=== PATIENT | female | born 1960 | race Caucasian/White ===

== ENCOUNTER → 2016-07-18 | Outpatient (CLI) | payer MEDICAID ==
[2016-07-18 17:06] LABS: BASO # 0.1 x10^3/uL (0.0-0.2); BASO % 1 % (0-3); EOS % 3 % (0-3); HEMATOCRIT 45.9 % (36.0-47.0); HEMOGLOBIN 15.6 g/dL (12.0-15.5); LYMPH # 2.4 x10^3/uL (1.0-4.8); LYMPH % 33 % (24-48); MEAN CORPUSCULAR HEMOGLOBIN 33 pg (25-35); MEAN CORPUSCULAR HGB CONC 34 g/dL (31-37); MEAN CORPUSCULAR VOLUME 99 fL (79-100); MONO % 13 % (0-9); NEUT % 50 % (31-73); PLATELET COUNT 100 x10^3/uL (140-400); RED BLOOD COUNT 4.66 x10^6/uL (3.50-5.40); RED CELL DISTRIBUTION WIDTH 14.3 % (11.5-14.5); WHITE BLOOD COUNT 7.5 x10^3/uL (4.0-11.0)
[2016-07-18 17:16] LABS: INR 1.2 (0.8-1.1); PROTHROMBIN TIME PATIENT 14.4 SEC (11.7-14.0)
[2016-07-18 17:38] LABS: ALBUMIN 3.1 g/dL (3.4-5.0); ALBUMIN/GLOBULIN RATIO 0.7 (1.0-1.7); CREATININE 0.7 mg/dL (0.6-1.0); GFR 86.2; POTASSIUM 4.1 mmol/L (3.5-5.1); TOTAL BILIRUBIN 0.6 mg/dL (0.2-1.0); TOTAL PROTEIN 7.7 g/dL (6.4-8.2)
[2016-07-20 11:13] LABS: HCV ULTRA QUANT PCR HCV Not Detected IU/mL (.)
== END | disposition home or self-care (01) ==
LOC: LAB 16:36
PROVIDERS: ATTEND Internal Medicine
DX: B18.2 Chronic viral hepatitis C (principal); K72.90 Hepatic failure, unspecified without coma
CPT/HCPCS: 36415; 80053; 85027; 85610; 87521

== ENCOUNTER 2017-06-15 18:31 | Emergency (ER) | payer OTHER, MEDICAID ==
[2017-06-15] MEDS: ORPHENADRINE CITRATE 60 MG/2 ML VIAL. IM (19:15)
[2017-06-15] MEDS: KETOROLAC 60 MG/2 ML INJ. IM (19:15)
[2017-06-15] MEDS ORDERED: ORPHENADRINE CITRATE 60 MG/2 ML VIAL. (19:16)
== END 2017-06-15 19:49 | disposition home or self-care (01) ==
LOC: ER 18:31
DX: M54.5 Low back pain (principal); G89.29 Other chronic pain; I10 Essential (primary) hypertension; F17.200 Nicotine dependence, unspecified, uncomplicated; Z88.8 Allergy status to other drugs, medicaments and biological substances; W18.39XA Other fall on same level, initial encounter; Y93.89 Activity, other specified; Y99.8 Other external cause status; Y92.89 Other specified places as the place of occurrence of the external cause
CPT/HCPCS: 72170; 96372; 99284-25; J1885; J2360

== ENCOUNTER 2020-01-24 08:50 | Emergency (ER) | payer OTHER ==
[2017-06-15 18:39] VITALS: BP 160/78
[~2020-01-24 08:50] MED LIST: IBUP-1060 PO; ORPH100T PO
== END 2020-01-24 10:31 | disposition left against medical advice (07) ==
LOC: ER 08:50
DX: S61.459A Open bite of unspecified hand, initial encounter (principal); W54.0XXA Bitten by dog, initial encounter; Z53.21 Procedure and treatment not carried out due to patient leaving prior to being seen by health care provider; Y93.89 Activity, other specified; Y92.89 Other specified places as the place of occurrence of the external cause; Y99.8 Other external cause status

== ENCOUNTER 2021-05-11 12:35 | Emergency (ER) | payer OTHER ==
[~2021-05-11] VITALS: Ht 149.9 cm; Wt 80.9 kg
--- NOTE | 2021-05-11 13:57 | RAD ---
EXAM: Right hand, 3 views; right forearm, 2 views; right humerus, 2 views. HISTORY: Falls. Pain. COMPARISON: None. FINDINGS: Right hand and forearm: There is no acute fracture, dislocation or subluxation. There is suspected de generative subchondral cyst formation involving the ulnar aspect of the lunate. There is no convincin g osteonecrosis. There is no radiodense foreign body. There is no elbow effusion. Right humerus: 2 views the right humerus are obtained. There is no fracture, dislocation or subluxati on. There is minimal degenerative change involving the acromioclavicular joint. IMPRESSION: No acute osseous finding. Electronically signed by: Elvira Padilla MD (05/11/2021 1:55 PM) [id number]
--- NOTE | 2021-05-11 14:20 | PHYS DOC ---
Past Medical History Past Medical History: Hypertension, Stroke Additional Past Medical Histor: cirrhosis of the liver, osteoporesis Past Surgical History: , Other Additional Past Surgical Histo: Facial reconstruction, arm and wrist surgery Smoking Status: Never Smoker Alcohol Use: None Drug Use: None General Adult EDM: Chief Complaint: UPPER EXTREMITY INJURY HPI: HPI: Patient is a 61 year old female who presents with right upper extremity pain. Patient states she has residual deficits from a prior stroke, and as a result falls frequently. Patient states she was flipping her mattress with her granddaughter on Friday. She was standing inside of the bed frame, but when she went to step out, she did not clear the bed frame with her foot and fell onto her right side. She is unsure if she fell onto her outstretched hand or directly onto her upper arm. Patient reports that her hand is now swollen and that she has bruising in the axilla. She reports she has fallen 34 times in the past month onto her right side. Patient reports pain with lifting her right arm. She denies paresthesias, skin color changes, head trauma, loss of consci ousness and any other injuries. Review of Systems: Review of Systems: Constitutional: Denies fever, chills or generalized weakness Eyes: Denies change in visual acuity, visual field deficits or discharge HENT: Denies ear pain, nasal congestion or sore throat Respiratory: Denies cough or shortness of breath Cardiovascular: Denies chest pain, palpitations or edema GI: Denies abdominal pain, nausea, vomiting, bloody stools or diarrhea : Denies dysuria or hematuria Musculoskeletal: See HPI Integument: Denies rash or other skin lesion Neurologic: Denies headache, focal weakness or sensory changes Heart Score: C/O Chest Pain: No Allergies: Allergies: Allergies Coded Allergies Type Severity Reaction Last Updated Verified nitroglycerin Allergy Unknown 05/11/21 Yes Physical Exam: PE: Constitutional: Obese, no acute distress, non-toxic appearance. HENT: Normocephalic, atraumatic, bilateral external ears normal, nose normal. Eyes: EOMI, conjunctiva normal, no discharge. Neck: Normal range of motion, no stridor. Skin: Warm, dry, no erythema, no rash. Ecchymosis noted in R axilla. Back: No stepoff, no tenderness. Extremities: RUE diffusely tender to palpation, passive ROM intact, active R arm abduction limited secondary to pain, edema of right hand noted consistent with dependent edema. Extremities otherwise no tenderness, no cyanosis, no clubbing, ROM intact, no edema, distal pulses symmetric. Neurologic: Alert and oriented x4, no focal deficits noted. Current Patient Data: Vital Signs: Vital Signs Date Time Temp Pulse Resp B/P (MAP) Pulse Ox O2 Delivery O2 Flow Rate FiO2 05/11/21 12:37 97.7 78 20 186/81 (116) 96 Room Air 97.7 Radiology/Procedures: Radiology/Procedures: PROCEDURE: HUMERUS RIGHT EXAM: Right hand, 3 views; right forearm, 2 views; right humerus, 2 views. HISTORY: Falls. Pain. COMPARISON: None. FINDINGS: Right hand and forearm: There is no acute fracture, dislocation or subluxation. There is suspected degenerative subchondral cyst formation involving the ulnar aspect of the lunate. There is no convincing osteonecrosis. There is no radiodense foreign body. There is no elbow effusion. Right humerus: 2 views the right humerus are obtained. There is no fracture, dislocation or subluxation. There is minimal degenerative change involving the acromioclavicular joint. IMPRESSION: No acute osseous finding. Electronically signed by: Elvira Padilla MD (05/11/2021 1:55 PM) [id number] Course & Med Decision Making: Course & Med Decision Making Pertinent Labs and Imaging studies reviewed. (See chart for details) Plain films do not show any acute abnormalities. Patient was provided contact information for receiving specialist for follow-up evaluation and management. Her questions were answered. Patient understands and is agreeable to discharge at this time. Dragon Disclaimer: Dragon Disclaimer: This electronic medical record was generated, in whole or in part, using a voice recognition dictation system. Departure Departure Impression: Primary Impression: Contusion of multiple sites of right arm Qualified Codes: S40.021A - Contusion of right upper arm, initial encounter Additional Impression: Subchondral bone cyst Disposition: HOME / SELF CARE / HOMELESS Condition: STABLE Referrals: ROSELIA BARRIOS MD (PCP) CHANDAN HUFFMAN Jr. DO Patient Instructions: Arthritis, Nonspecific, [id number], Contusion, [id number] Additional Instructions: EMERGENCY DEPARTMENT GENERAL DISCHARGE INSTRUCTIONS Thank you for coming to [facility] Emergency Department (ED) toda y and trusting us with you care. We trust that you had a positive experience in our Emergency Department. If you wish to speak to the department management, you may call the director at . YOUR FOLLOW UP INSTRUCTIONS ARE FOLLOWS: 1. Follow up with your primary care doctor. If you do not have a primary doctor, please ask for a resource list of physicians or clinics that may be able to assist you with follow up care. 2. The emergency provider has interpreted your imaging studies, if any were ordered. The radiology injection specialist also reviewed them. If there is a change in the findings, you will be notified in 48 hours when at all possible. 3. If a lab test or culture has been done, your results will be reviewed and you will be notified if you need a change in treatment. 4. Follow instructions verbalized to you and refer to the printouts if needed. ADDITIONAL INSTRUCTIONS AND INFORMATION: 1. Your care today has been supervised by a physician who is specially trained in emergency care. Many problems require more than one evaluation for a complete diagnosis and treatment. We recommend that you schedule your follow up appointment as recommended to ensure complete treatment of you illness or injury. If you are unable to obtain follow up care and continue to have a problem, or if your condition worsens, we recommend that you return to the ED. 2. We are not able to safely determine your condition over the phone nor are we able to give sound medical advice over the phone. For these safety reasons, if you call for medical advice we will ask you to come to the ED for further evaluation. 3. If you have any questions regarding these discharge instructions please call the ED at . SAFETY INFORMATION: In the interest of safety, wellness, and injury prevention; we encourage you to wear your seat belt, if you smoke; quite smoking, and we encourage family to use a protective helmet for bicycling and other sporting events that present an increased risk for head injury. IF YOUR SYMPTOMS WORSEN OR NEW SYMPTOMS DEVELOP, OR YOU HAVE CONCERNS ABOUT YOUR CONDITION; OR IF YOUR CONDITION WORSENS WHILE YOU ARE WAITING FOR YOUR FOLLOW UP APPOINTMENT; EITHER CONTACT YOUR PRIMARY CARE DOCTOR, THE PHYSICIAN WHOSE NAME AND NUMBER YOU WERE GIVEN, OR RETURN TO THE ED IMMEDIATELY. LEOPOLDO KEMP May 11, 2021 14:20
[2021-05-11 14:35] VITALS: BP 163/84
== END 2021-05-11 14:37 | disposition home or self-care (01) ==
LOC: ER 12:35
DX: S40.021A Contusion of right upper arm, initial encounter (principal); M85.621 Other cyst of bone, right upper arm; I10 Essential (primary) hypertension; Z86.73 Personal history of transient ischemic attack (TIA), and cerebral infarction without residual deficits; Z88.8 Allergy status to other drugs, medicaments and biological substances; W18.39XA Other fall on same level, initial encounter; Y93.89 Activity, other specified; Y92.89 Other specified places as the place of occurrence of the external cause; Y99.8 Other external cause status
CPT/HCPCS: 73060; 73090; 73130; 99284; A4565